=== PATIENT | female | born 1940 | race Caucasian/White ===

== ENCOUNTER → 2023-03-29 12:57 | Outpatient (REF) | payer MEDICARE, SELFPAY ==
--- NOTE | 2023-03-29 13:02 | CA_ITS ---
Transthoracic Echocardiogram Patient (Last, First, Middle): Kitty Cortes, Gender: Female Date of : 1940 Age: 83 Procedure Date: 03/29/2023 Procedure Type: Transthoracic Echocardiogram Location: [facility] Height: 147.32 cm Weight: 45.36 kg BSA: 1.36 m2 Heart Rate: bpm BP: 116 / 56 mmHg Tie Layer: ISAEL Referring MD: Simon Martinez MANUFACTURING PROCESS ENGINEER Alcohol Rubber: Jose Francisco Minaya MD Symptoms: R60.0 LOCALIZED EDEMA Study Quality: Good ECG Rhythm: Sinus Conclusions: - 1. Normal LV systolic function with impaired relaxation filling pattern elevated filling pressures 2. Normal cardiac valvular Doppler 3. Normal RV systolic pressure 4. No gross pericardial effusion Findings Left Ventricle Normal left ventricular size, thickness, and systolic function. The visually estimated ejection fraction is between 60-65%. Spectral Doppler is indicative of an impaired relaxation filling pattern. Elevated filling pressures. E/E prime ratio is >15, consistent with elevated filling pressures. Peak GLS is -18.2%, within normal limits. Right Ventricle Normal right ventricular cavity size and systolic function. Atria The left atrium is likely dilated. Interatrial shunt cannot be excluded. The right atrium is normal in size. Aortic Valve Normal aortic valve structure and function. There is no aortic valve stenosis. There is no aortic valve regurgitation. Mitral Valve Normal mitral valve structure and function. There is trace mitral valve regurgitation. There is no mitral valve stenosis. Pulmonic Valve The pulmonic valve was not well visualized. Tricuspid Valve Likely normal tricuspid valve structure and function. There is trace tricuspid valve regurgitation. The right ventricular systolic pressure is normal. The right ventricular systolic pressure is 28 mmHg. Normal right atrial pressure. There is no evidence of pulmonary hypertension. Great Vessels All visible segments of the aorta are normal in size. The pulmonary artery was not well visualized. There is no dilatation of the ascending aorta. Venous The inferior vena cava is normal in size and collapses greater than 50% with inspiration. Pericardium/Pleural There is no evidence of pericardial effusion. Prior Study Comparison No prior study available for comparison. Measurements 2D Linear Measurements IVSd: 1.35 0.6-0.9/0.6-1.0 cm LVIDd: 2.72 3.9-5.3/4.2-5.9 cm LVIDd Index: 2.00 2.4-3.2/2.2-3.1 cm/m2 LVIDs: 1.80 2.0-3.6 cm LVPWd: 1.31 0.7-1.1 cm Ao Root: 2.90 2.1-3.5 cm LA Diam: 2.60 2.7-3.8/3.0-4.0 cm LAIDs Index: 1.91 1.5-2.3 cm/m2 LV Mass: 141.02 67-162/88-224 g LV Mass Index: 103.69 43-95/49-115 g/m2 LVOT Diam: 2.00 3.0+(-)1.3 cm Mitral Valve MV Pk E: 1.02 MV PK A: 1.25 MV Decel Time: 259.00 E/A: 0.80 E'Lateral: 4.46 E'Medial: 5.87 E/E' Med: 17.40 E/E' Lat: 22.90 PHT: 76.00 MVA PHT: 2.89 Decel [place]: 3.92 Aortic Valve AoV Pk Moises: 1.46 AoV Mn Moises: 0.91 AoV VTI: 0.32 AoV Pk Grad: 9.00 Aov Mn Grad: 4.00 CLAY Cont.VTI: 2.62 LVOT LVOT Pk Moises: 1.08 LVOT Mn Moises: 0.68 LVOT VTI: 0.27 LVOT Pk Grad: 5.00 LVOT Mn Grad: 2.00 LVOT Diam: 2.00 LVOT Area: 3.14 Diastolic Function MV Pk E: 1.02 MV Pk A: 1.25 E/A: 0.80 E'Medial: 5.87 E/E' Med: 17.40 E' Laterial: 4.46 E/E' Lat: 22.90 Right Ventricle TAPSE (mm): 25.00 TVS' Moises: 12.00 Tricuspid Valve TR Pk Moises: 2.22 TR Pk Grad: 20.00 RA Press: 8.00 RVSP: 28.00 Great Vessels Aorta Ao Root-2D: 2.90 2.0-3.7 cm Ao Asc: 2.80 2.1-3.4 cm Pulmonary Valve PV Pk Moises: 0.95 Peak PV Grad: 4.00 Updated in Other Vendor System with Status of Final Jose Francisco Minaya MD electronically signed on 03/29/2023 4:03:32 PM with status of Final
== END ==
LOC: HO.CARD 12:57
PROVIDERS: Visit Provider Nurse Practitioner Primary Care
DX: R60.0 Localized edema (principal)
CPT/HCPCS: 93306; 93356

== ENCOUNTER → 2023-03-29 13:02 | Outpatient (BNV) | payer MEDICARE, SELFPAY | PROVIDERS: Visit Provider Internal Medicine Cardiovascular Disease | DX: R60.0 Localized edema (principal) | CPT/HCPCS: 93306 ==